=== PATIENT | male | born 1975 | race Caucasian/White ===

== ENCOUNTER 2017-12-09 09:44 | Observation (INO) | payer SELFPAY ==
--- NOTE | 2017-12-09 09:59 | ER Document Report ---
ED Medical Screen (RME) - General Chief Complaint: Dizziness Stated Complaint: DIZZINESS, HEADACHE Time Seen by Provider: 12/09/17 09:56 Mode of Arrival: Ambulatory Information source: Patient Notes: Patient states that when he awoke this morning at 530 he had a headache and felt dizzy. He states that he felt normal yesterday. He states that he has fell off balance in his legs and felt like "Jell-O". He states he tried to go to work but he continued to feel dizzy and have a headache and that his mouth felt numb when he was trying to chew. Is well TRAVEL OUTSIDE OF THE [place] IN LAST 30 DAYS: No - Related Data Allergies/Adverse Reactions: Sulfa (Sulfonamide Antibiotics) Allergy (Unknown, Verified 12/09/17 09:46) sulfamethoxazole [From ] Allergy (Verified 12/09/17 09:46) trimethoprim [From ] Allergy (Verified 12/09/17 09:46) Past Medical History - Social History Frequency of alcohol use: None Drug Abuse: None Pulmonary Medical History: Reports: Hx Asthma Endocrine Medical History: Denies: Hx Diabetes Mellitus Type 2 Renal/ Medical History: Denies: Hx Peritoneal Dialysis GI Medical History: Denies: Hx Gastritis, Hx Gastroesophageal Reflux Disease Skin Medical History: Reports Hx MRSA Past Surgical History: Reports: Hx Orthopedic Surgery - L4-L5 - Immunizations Hx Diphtheria, Pertussis, Tetanus Vaccination: Yes Physical Exam - Vital signs Vitals: Temp Pulse Resp BP Pulse Ox 98.2 F 71 18 135/74 H 90 L 12/09/17 09:50 12/09/17 09:50 12/09/17 09:50 12/09/17 09:50 12/09/17 09:50 Course - Vital Signs Vital signs: Temp Pulse Resp BP Pulse Ox 98.2 F 71 18 135/74 H 90 L 12/09/17 09:50 12/09/17 09:50 12/09/17 09:50 12/09/17 09:50 12/09/17 09:50
[2017-12-09 10:30] LABS: ABSOLUTE EOSINOPHILS # (AUTO) 0.4 10^3/uL (0.0-0.6); ABSOLUTE LYMPHOCYTES (AUTO) 1.5 10^3/uL (0.5-4.7); ABSOLUTE MONOCYTES (AUTO) 0.4 10^3/uL (0.1-1.4); ABSOLUTE NEUT (AUTO) 5.8 10^3/uL (1.7-8.2); BASOPHILS % (AUTO) 0.5 % (0-2); HEMATOCRIT 43.8 % (37.9-51.0); HEMOGLOBIN 14.3 g/dL (13.5-17.0); LYMPHOCYTES % (AUTO) 18.1 % (13-45); MEAN CORPUSCULAR HEMOGLOBIN 28.1 pg (27.0-33.4); MEAN CORPUSCULAR HGB CONC 32.7 g/dL (32.0-36.0); MEAN CORPUSCULAR VOLUME 86 fl (80-97); MONOCYTES % (AUTO) 4.8 % (3-13); PLATELET COUNT 172 10^3/uL (150-450); SEGMENTED NEUTROPHILS % (AUTO) 71.6 % (42-78); TOTAL CELLS COUNTED % (AUTO) 100 %; WHITE BLOOD COUNT 8.1 10^3/uL (4.0-10.5)
--- NOTE | 2017-12-09 10:34 | ER Document Report ---
ED General - General Chief Complaint: Dizziness Stated Complaint: DIZZINESS, HEADACHE Time Seen by Provider: 12/09/17 09:56 Mode of Arrival: Ambulatory Notes: Patient says that he is having trouble with his balance and feeling dizzy this morning about 5:30 or 5:45 AM. He was fine yesterday and when he went to bed last night. He had his symptoms when he woke up this morning. He says his legs feel like "Jell-O", both of them, the left may be a little worse than the right. He says he feels normal around his mouth. 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 He says that he has had a headache since this morning, but took 2 Aleve around 8 AM and that headache is completely gone now. Patient says he has had headaches like this in the past occasionally, but not associated with these other symptoms. Says he vomited once today. Not nauseated now. No abdominal pain or diarrhea. No chest pains. No shortness of breath or difficulty breathing. Has not had any fever. Not around anyone else has been ill recently. PMH: Patient has chronic back pain from old injuries and 3 back surgeries. He takes Buphenyl 20 mg daily. TRAVEL OUTSIDE OF THE [place] IN LAST 30 DAYS: No - Related Data Allergies/Adverse Reactions: Sulfa (Sulfonamide Antibiotics) Allergy (Unknown, Verified 12/09/17 09:46) sulfamethoxazole [From Septra] Allergy (Verified 12/09/17 09:46) trimethoprim [From Septra] Allergy (Verified 12/09/17 09:46) Past Medical History - General Information source: Patient - Social History Smoking Status: Current Every Day Smoker - Smokes 2 packs of cigarettes daily. Cigarette use (# per day): Yes Frequency of alcohol use: None Drug Abuse: None Family History: Reviewed & Not Pertinent, Other - Kidney disease Patient has suicidal ideation: No Patient has homicidal ideation: No Pulmonary Medical History: Reports: Hx Asthma Skin Medical History: Reports Hx MRSA Past Surgical History: Reports: Hx Orthopedic Surgery - L4-L5 Back surgery 3 times - Immunizations Hx Diphtheria, Pertussis, Tetanus Vaccination: Yes Review of Systems - Review of Systems Notes: REVIEW OF SYSTEMS: CONSTITUTIONAL : Denies fever. EENT: Denies eye, ear, nose or mouth or throat pain or other symptoms. Vision normal. No significant nasal congestion. CARDIOVASCULAR: Denies chest pain. RESPIRATORY: Denies cough, chest congestion, or shortness of breath. GASTROINTESTINAL: Denies abdominal pain or nausea, vomiting, or diarrhea. GENITOURINARY: Denies difficulty or painful urinating, urinary frequency, blood in urine. MUSCULOSKELETAL: Has chronic back pain. Denies neck pain. Denies joint pain or swelling. SKIN: Denies rash or skin lesions. NEUROLOGICAL: See HPI. Denies LOC or altered mental status. Denies sensory loss or motor deficits. ALL OTHER SYSTEMS REVIEWED AND NEGATIVE. Physical Exam - Vital signs Vitals: Temp Pulse Resp BP Pulse Ox 98.2 F 71 18 135/74 H 90 L 12/09/17 09:50 12/09/17 09:50 12/09/17 09:50 12/09/17 09:50 12/09/17 09:50 Interpretation: Normal - Notes Notes: PHYSICAL EXAMINATION: GENERAL: Well-appearing, in no acute distress. Vital signs are all normal. HEAD: Atraumatic, normocephalic. EYES: Pupils equal round and reactive to light, extraocular movements intact. ENT: oropharynx clear without exudates. Moist mucous membranes. NECK: Normal range of motion, supple. No carotid bruits heard. LUNGS: Breath sounds clear and equal bilaterally. HEART: Regular rate and rhythm without murmurs. ABDOMEN: Soft, nontender. No guarding or rebound. No masses. BACK: No tenderness throughout entire back. EXTREMITIES: Normal range of motion without pain. NEUROLOGICAL: Normal speech, normal gait. Normal sensory, motor, and reflex exams. Awake, alert, and oriented x3. PSYCH: Normal mood, normal affect. SKIN: Warm, dry, no rashes. Course - Re-evaluation Re-evalutation: 12/09/17 15:21 Discussed the case with , neurology at [facility], who recommends treatment with aspirin daily and further workup of the patient, but no need to transfer him to their facility at this time. Recommended CTA of the head and neck, echocardiogram, hypercoagulable studies, and lipid studies. Discussed with hospitalist who will be admitting the patient for observation. - Vital Signs Vital signs: Temp Pulse Resp BP Pulse Ox 98.2 F 63 10 L 132/75 H 92 12/09/17 09:50 12/09/17 12:00 12/09/17 12:01 12/09/17 12:01 12/09/17 12:01 - Laboratory Result Diagrams: 12/09/17 10:09 12/09/17 10:09 Laboratory results interpreted by me: 12/09/17 11:15 Carboxyhemoglobin 5.1 H - Diagnostic Test Radiology reviewed: Image reviewed, Reports reviewed - CT scan of the brain showed some abnormality and MRI was advised. MRI shows an acute nonhemorrhagic infarct of the right thalamus. - EKG Interpretation by Mo EKG shows normal: Sinus rhythm Rate: Normal Rhythm: NSR Additional EKG results interpreted by me: 12/09/17 15:19 EKG is normal. Discharge - Discharge Clinical Impression: Stroke Condition: Stable Disposition: ADMITTED OBSERVATION Admitting Provider: Hospitalist Unit Admitted: Telemetry
[2017-12-09 10:57] LABS: ALANINE AMINOTRANSFERASE 43 U/L (21-72); ALBUMIN 4.2 g/dL (3.5-5.0); ALKALINE PHOSPHATASE 71 U/L (38-126); ANION GAP 9 (5-19); ASPARTATE AMINO TRANSFERASE 30 U/L (17-59); BILIRUBIN,DIRECT 0.4 mg/dL (0.0-0.4); BILIRUBIN,TOTAL 0.5 mg/dL (0.2-1.3); BLOOD UREA NITROGEN 15 mg/dL (7-20); CARBON DIOXIDE 30 mmol/L (22-30); CHLORIDE 105 mmol/L (98-107); GLUCOSE 93 mg/dL (75-110); POTASSIUM 4.5 mmol/L (3.6-5.0); SODIUM 143.6 mmol/L (137-145); TOTAL PROTEIN 7.3 g/dL (6.3-8.2)
--- NOTE | 2017-12-09 11:25 | RADIOLOGY REPORT (SQ) ---
EXAM DESCRIPTION: CT HEAD WITHOUT COMPLETED DATE/TIME: 12/09/2017 10:59 am REASON FOR STUDY: dizzy/gonsalez COMPARISON: None. TECHNIQUE: Axial images acquired through the brain without intravenous contrast. Images reviewed wi th bone, brain and subdural windows. Images stored on PACS. All CT scanners at this facility use dose modulation, iterative reconstruction, and/or weight based d osing when appropriate to reduce radiation dose to as low as reasonably achievable (ALARA). [facility]: Dose Right [facility]: CareDose [facility]: Dose Right [facility]: Teradose 4D [facility]: Smart Technologies RADIATION DOSE: CT Rad equipment meets quality standard of care and radiation dose reduction techniq ues were employed. CTDIvol: 64.6 mGy. DLP: 1163 mGy-cm. mGy. LIMITATIONS: None. FINDINGS: VENTRICLES: There is some deformity of the temporal horn of the right lateral ventricle. CEREBRUM: There is relative low density along the path of the temporal horn of the right lateral vent ricle. This may be related to adjacent encephalomalacia. Other etiologies cannot be excluded and MR I may be of value for further evaluation. No hemorrhage. No midline shift. No evidence for acute i nfarction. Normal alamo/white matter differentiation. No areas of low density in the white matter. CEREBELLUM: No masses. No hemorrhage. No alteration of density. No evidence for acute infarction. EXTRAAXIAL SPACES: No fluid collections. No masses. ORBITS AND GLOBE: No intra- or extraconal masses. Normal contour of globe without masses. CALVARIUM: No fracture. PARANASAL SINUSES: A large mucosal polyp retention cyst is identified in the left maxillary antra. M ucosal thickening is seen in several of the ethmoidal air cells P SOFT TISSUES: No mass or hematoma. OTHER: No other significant finding. IMPRESSION: There is some deformity of the temporal horn of the right lateral ventricle with adjacen t relative low density as noted above. This may be related to adjacent encephalomalacia. Other etio logies cannot be excluded and MRI may be of value for further evaluation. Other findings as noted ab ove EVIDENCE OF ACUTE STROKE: NO. COMMENT: Quality ID # [id number]: Final reports with documentation of one or more dose reduction techniques (e.g., Automated exposure control, adjustment of the mA and/or kV according to patient size, use of iterative reconstruction technique) TECHNICAL DOCUMENTATION: JOB ID: [id number] [employer]- All Rights Reserved Reading location - IP/workstation name: [email or web address]
[2017-12-09 11:31] LABS: APPEARANCE,URINE CLEAR; BILIRUBIN,URINE NEGATIVE (NEGATIVE); COLOR,URINE STRAW; GLUCOSE, URINE NEGATIVE (NEGATIVE); KETONES,URINE NEGATIVE (NEGATIVE); LEUKOCYTE ESTERASE,URINE NEGATIVE (NEGATIVE); NITRITE,URINE NEGATIVE (NEGATIVE); PROTEIN,URINE NEGATIVE (NEGATIVE); URINE SPECIFIC GRAVITY 1.005; UROBILINOGEN,URINE NEGATIVE mg/dL (<2.0)
[2017-12-09 11:44] LABS: URINE AMPHETAMINES SCREEN NEGATIVE; URINE BARBITURATES SCREEN NEGATIVE; URINE BENZODIAZEPINES SCREEN NEGATIVE; URINE COCAINE SCREEN NEGATIVE; URINE MARIJUANA (THC) SCREEN NEGATIVE; URINE METHADONE SCREEN NEGATIVE; URINE PHENCYCLIDINE SCREEN NEGATIVE
--- NOTE | 2017-12-09 13:47 | RADIOLOGY REPORT (SQ) ---
EXAM DESCRIPTION: MRI HEAD COMBO COMPLETED DATE/TIME: 12/09/2017 1:30 pm REASON FOR STUDY: Abnormal findings on CT of head, dizzy, balance pr COMPARISON: None. TECHNIQUE: Multiplanar imaging includes noncontrasted T1, T2, FLAIR, diffusion with ADC map and post gadolinium contrast T1 sequences. Images stored on PACS. CONTRAST TYPE AND DOSE: 20 mL Multihance. RENAL FUNCTION: GFR > 60. LIMITATIONS: None. FINDINGS: ANATOMY: No anomalies. Normal vascular flow voids. Pituitary fossa normal. CSF SPACES: Normal in size and contour. No hemorrhage. CEREBRUM: Oval focus of abnormal signal in the right thalamus which is bright on diffusion and dark o n ADC map. No evidence of hemorrhage, mass, or extraaxial fluid collection. No abnormal enhancement p ost contrast. POSTERIOR FOSSA: No signal alteration. No hemorrhage. No edema, masses, or mass effect. Internal nikki tory canals, cerebellopontine angles, mastoids normal. No enhancing lesions. No abnormal enhancement post contrast. DIFFUSION IMAGING: See above. ORBITS: No masses. Globes normal. PARANASAL SINUSES: Fluid left maxillary sinus. OTHER: No other significant finding. IMPRESSION: Acute, nonhemorrhagic infarct right thalamus. EVIDENCE OF ACUTE STROKE: YES. RIGHT [employer] TECHNICAL DOCUMENTATION: JOB ID: [id number] [employer]- All Rights Reserved Reading location - IP/workstation name: [email or web address]
--- NOTE | 2017-12-09 14:31 | RADIOLOGY REPORT (SQ) ---
EXAM DESCRIPTION: LUMBAR PUNCTURE; FLUORO/NEEDLE PLACEMENT/SPINE COMPLETED DATE/TIME: 12/09/2017 2:21 pm REASON FOR STUDY: Headache and weakness. Hx 3 back surgeries; MARTEL, WEAKNESS COMPARISON: CT brain 12/09/2017, MRI brain 12/09/2017 Lumbar spine films 03/01/2013 FLUOROSCOPY TIME: 23 seconds 2 digital radiographic images saved to PACS. TECHNIQUE: Fluoroscopic guided lumbar puncture. LIMITATIONS: None. PROCEDURE: After written consent and assessment were obtained, the patient was brought into the fluo roscopy room and placed prone on the table. The patient's lower back was prepped in a sterile fashio n and an entry site was selected under live fluoroscopic guidance. The entry site was anesthetized wi th 4 mL of 1% lidocaine. A 22 gauge spinal needle was advanced through the skin and into the thecal s ac at the left paracentral L2-3 level. After approximately 8 ml was drained, the needle was removed and a sterile bandage was placed of the site. Specimens were sent to the lab for testing. A fluoros copic spot image was saved to PACS confirming level access. FINDINGS: Clear CSF, opening pressure 15 cm of water IMPRESSION: Lumbar puncture under fluoroscopy. No immediate complication. COMMENT: Patient medication list reviewed: Yes- Quality ID# [id number]:Eligible professional attests to doc umenting in the medical record they obtained, updated, or reviewed the patient's current medications. . Quality ID 145: Final reports for procedures using fluoroscopy that document radiation exposure zara kiki, or exposure time and number of fluorographic images (if radiation exposure indices are not avail able) TECHNICAL DOCUMENTATION: JOB ID: [id number] [employer]- All Rights Reserved Reading location - IP/workstation name: [email or web address]
--- NOTE | 2017-12-09 14:31 | RADIOLOGY REPORT (SQ) ---
EXAM DESCRIPTION: LUMBAR PUNCTURE; FLUORO/NEEDLE PLACEMENT/SPINE COMPLETED DATE/TIME: 12/09/2017 2:21 pm REASON FOR STUDY: Headache and weakness. Hx 3 back surgeries; MARTEL, WEAKNESS COMPARISON: CT brain 12/09/2017, MRI brain 12/09/2017 Lumbar spine films 03/01/2013 FLUOROSCOPY TIME: 23 seconds 2 digital radiographic images saved to PACS. TECHNIQUE: Fluoroscopic guided lumbar puncture. LIMITATIONS: None. PROCEDURE: After written consent and assessment were obtained, the patient was brought into the fluo roscopy room and placed prone on the table. The patient's lower back was prepped in a sterile fashio n and an entry site was selected under live fluoroscopic guidance. The entry site was anesthetized wi th 4 mL of 1% lidocaine. A 22 gauge spinal needle was advanced through the skin and into the thecal s ac at the left paracentral L2-3 level. After approximately 8 ml was drained, the needle was removed and a sterile bandage was placed of the site. Specimens were sent to the lab for testing. A fluoros copic spot image was saved to PACS confirming level access. FINDINGS: Clear CSF, opening pressure 15 cm of water IMPRESSION: Lumbar puncture under fluoroscopy. No immediate complication. COMMENT: Patient medication list reviewed: Yes- Quality ID# [id number]:Eligible professional attests to doc umenting in the medical record they obtained, updated, or reviewed the patient's current medications. . Quality ID 145: Final reports for procedures using fluoroscopy that document radiation exposure zara kiki, or exposure time and number of fluorographic images (if radiation exposure indices are not avail able) TECHNICAL DOCUMENTATION: JOB ID: [id number] [employer]- All Rights Reserved Reading location - IP/workstation name: [email or web address]-RR
[2017-12-09 14:57] LABS: APPEARANCE ALL TUBES CLEAR; COLOR ALL TUBES COLORLESS; CSF TOTAL VOLUME 7.8 CC; CSF TUBE NUMBER 1; VOLUME TUBE 4 1.8 CC
[2017-12-09 14:58] LABS: APPEARANCE ALL TUBES CLEAR; COLOR ALL TUBES COLORLESS; CSF TUBE NUMBER 4; RED BLOOD CELL,CSF 316 /uL (0-10); WHITE BLOOD CELL,CSF 3 /uL (0-5)
[2017-12-09 14:59] LABS: CSF TOTAL VOLUME 7.8 CC; RED BLOOD CELL,CSF 17 /uL (0-10); VOLUME TUBE 4 1.8 CC; WHITE BLOOD CELL,CSF 2 /uL (0-5)
[2017-12-09 15:00] LABS: GLUCOSE,CSF 69 mg/dL (40-70); PROTEIN,CSF 43 mg/dL (12-60)
[2017-12-09] MEDS ORDERED: LABETALOL HCL INJ 20 MG/4 ML DISP.SYRIN IV PRN (15:55)
[2017-12-09] MEDS ORDERED: OXYCODONE HCL IR 5 MG TABLET PO PRN (16:08)
--- NOTE | 2017-12-09 16:31 | PDOC H&P ---
History of Present Illness Admission Date/PCP: 12/09/2017 3:30pm No PCP Patient complains of: acute lower extremity weakness History of Present Illness: YOSEPH MANLEY is a 42 year old male Past Medical History Pulmonary Medical History: Reports: Asthma Endocrine Medical History: Denies: Diabetes Mellitus Type 2 GI Medical History: Denies: Gastroesophageal Reflux Disease Musculoskeletal History Note: Chronic lower back pain Past Surgical History Past Surgical History: Reports: Orthopedic Surgery - L4-L5 Back surgery 3 times Social History Information Source: Patient Smoking Status: Current Every Day Smoker - Smokes 2 packs of cigarettes daily. 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 Family History Family History: Reviewed & Not Pertinent, Other - Kidney disease Parental Family History Reviewed: Yes - Father: HTN, Mother: Anorexia, Grandmother: hemorrhagic CVA Children Family History Reviewed: NA Sibling(s) Family History Reviewed.: NA Medication/Allergy Home Medications: Albuterol Sulfate [Ventolin HFA MDI 18 GM] 2 puff IH Q6HP PRN #7 mdi 03/08/14 Doxycycline Hyclate [Vibramycin 100 mg Tablet] 100 mg PO BID #20 tablet Oxycodone HCl/Acetaminophen [Percocet 5-325 mg Tablet] 1 - 2 tab PO ASDIR PRN # 20 tablet 03/08/14 Prednisone [Deltasone 20 mg Tablet] 20 mg PO QAM #25 tablet 03/08/14 Ibuprofen [Motrin 600 mg Tablet] 600 mg PO Q8HP PRN #90 tablet 12/29/14 Oxycodone HCl 5 mg PO Q6 #30 tablet 12/29/14 Allergies/Adverse Reactions: Sulfa (Sulfonamide Antibiotics) Allergy (Unknown, Verified 12/09/17 09:46) sulfamethoxazole [From Septra] Allergy (Verified 12/09/17 09:46) trimethoprim [From Septra] Allergy (Verified 12/09/17 09:46) Review of Systems All systems: reviewed and no additional remarkable complaints except as stated Physical Exam Vital Signs: Temp Pulse Resp BP Pulse Ox 98.2 F 59 L 15 146/73 H 93 12/09/17 09:50 12/09/17 15:00 12/09/17 15:12 12/09/17 15:12 12/09/17 15:12 Intake & Output 12/08/17 12/09/17 12/10/17 06:59 06:59 06:59 Weight 135.3 kg General appearance: PRESENT: no acute distress, cooperative, obese Head exam: PRESENT: atraumatic, normocephalic Mouth exam: PRESENT: moist Neck exam: PRESENT: full ROM. ABSENT: carotid bruit, JVD, lymphadenopathy, tenderness, thyromegaly Respiratory exam: PRESENT: unlabored. ABSENT: tachypnea, wheezes Cardiovascular exam: PRESENT: RRR, +S1, +S2. ABSENT: systolic murmur, tachycardia GI/Abdominal exam: PRESENT: soft. ABSENT: tenderness Musculoskeletal exam: PRESENT: full ROM Neurological exam: PRESENT: alert, awake, oriented to person, oriented to place , oriented to time, oriented to situation, CN II-XII grossly intact, normal gait. ABSENT: aphasic Psychiatric exam: PRESENT: appropriate affect, normal mood Skin exam: PRESENT: dry Results Laboratory Results: 12/09/17 10:09 12/09/17 10:09 12/09/17 12/09/17 12/09/17 10:09 10:09 10:09 WBC 8.1 RBC 5.10 Hgb 14.3 Hct 43.8 MCV 86 MCH 28.1 MCHC 32.7 RDW 14.0 Plt Count 172 Seg Neutrophils % 71.6 Lymphocytes % 18.1 Monocytes % 4.8 Eosinophils % 5.0 Basophils % 0.5 Absolute Neutrophils 5.8 Absolute Lymphocytes 1.5 Absolute Monocytes 0.4 Absolute Eosinophils 0.4 Absolute Basophils 0.0 Carboxyhemoglobin Sodium 143.6 Potassium 4.5 Chloride 105 Carbon Dioxide 30 Anion Gap 9 BUN 15 Creatinine 0.81 Est GFR ( Amer) > 60 Est GFR (Non-Af Amer) > 60 Glucose 93 Calcium 10.0 Total Bilirubin 0.5 AST 30 ALT 43 Alkaline Phosphatase 71 Total Protein 7.3 Albumin 4.2 Urine Color STRAW Urine Appearance CLEAR Urine pH 7.0 Ur Specific [place] 1.005 Urine Protein NEGATIVE Urine Glucose (UA) NEGATIVE Urine Ketones NEGATIVE Urine Blood NEGATIVE Urine Nitrite NEGATIVE Ur Leukocyte Esterase NEGATIVE Urine WBC (Auto) 0 Fluid Tube Number CSF Volume CSF Appearance CSF Color CSF WBC CSF RBC CSF Glucose CSF Total Protein 12/09/17 12/09/17 12/09/17 11:15 14:03 14:03 WBC RBC Hgb Hct MCV MCH MCHC RDW Plt Count Seg Neutrophils % Lymphocytes % Monocytes % Eosinophils % Basophils % Absolute Neutrophils Absolute Lymphocytes Absolute Monocytes Absolute Eosinophils Absolute Basophils Carboxyhemoglobin 5.1 H Sodium Potassium Chloride Carbon Dioxide Anion Gap BUN Creatinine Est GFR ( Amer) Est GFR (Non-Af Amer) Glucose Calcium Total Bilirubin AST ALT Alkaline Phosphatase Total Protein Albumin Urine Color Urine Appearance Urine pH Ur Specific [place] Urine Protein Urine Glucose (UA) Urine Ketones Urine Blood Urine Nitrite Ur Leukocyte Esterase Urine WBC (Auto) Fluid Tube Number 1 4 CSF Volume 7.8 7.8 CSF Appearance CLEAR CLEAR CSF Color COLORLESS COLORLESS CSF WBC 3 2 CSF RBC 316 17 CSF Glucose CSF Total Protein 12/09/17 14:03 WBC RBC Hgb Hct MCV MCH MCHC RDW Plt Count Seg Neutrophils % Lymphocytes % Monocytes % Eosinophils % Basophils % Absolute Neutrophils Absolute Lymphocytes Absolute Monocytes Absolute Eosinophils Absolute Basophils Carboxyhemoglobin Sodium Potassium Chloride Carbon Dioxide Anion Gap BUN Creatinine Est GFR ( Amer) Est GFR (Non-Af Amer) Glucose Calcium Total Bilirubin AST ALT Alkaline Phosphatase Total Protein Albumin Urine Color Urine Appearance Urine pH Ur Specific [place] Urine Protein Urine Glucose (UA) Urine Ketones Urine Blood Urine Nitrite Ur Leukocyte Esterase Urine WBC (Auto) Fluid Tube Number CSF Volume CSF Appearance CSF Color CSF WBC CSF RBC CSF Glucose 69 CSF Total Protein 43 Impressions: Guidance Fluoroscopy 12/09/17 00:00 IMPRESSION: Lumbar puncture under fluoroscopy. No immediate complication. Head CT 12/09/17 09:56 IMPRESSION: There is some deformity of the temporal horn of the right lateral ventricle with adjacent relative low density as noted above. This may be related to adjacent encephalomalacia. Other etiologies cannot be excluded and MRI may be of value for further evaluation. Other findings as noted above EVIDENCE OF ACUTE STROKE: NO. Lumbar Puncture 12/09/17 12:07 IMPRESSION: Lumbar puncture under fluoroscopy. No immediate complication. Head MRI 12/09/17 12:15 IMPRESSION: Acute, nonhemorrhagic infarct right thalamus. EVIDENCE OF ACUTE STROKE: YES. RIGHT [employer] Assessment & Plan - Diagnosis (1) Arterial ischemic stroke, vertebrobasilar, thalamic, acute Qualifiers: Laterality: right Qualified Code(s): I63.211 - Cerebral infarction due to unspecified occlusion or stenosis of right vertebral artery; I63.22 - Cerebral infarction due to unspecified occlusion or stenosis of basilar artery; I63.22 - Cerebral infarction due to unspecified occlusion or stenosis of basilar artery; I63.22 - Cerebral infarction due to unspecified occlusion or stenosis of basilar artery; I63.22 - Cerebral infarction due to unspecified occlusion or stenosis of basilar artery Is this a current diagnosis for this admission?: Yes Plan: Presented with same day lower extremity (L>R) and difficulty with ambulation, no other focal neurological weakness. Work up with symptoms so unclear what time symptoms occurred --> outside the window for intervention with TPA Risk factors: current heavy smoker, heavy smoker, HTN? ED Work up: - MRI brain showed acute, non hemorrhagic infract right thalamus - LP was obtained for unclear reasons, not consistent with infection - Case discussed with Dr. Figueredo ([facility]) who recommended medical management Inpatient work up - Will check lipid profile, TSH, HgA1c - Ordered echocardiogram and carotid dopplers - PT/OT/speech evaluation - Smoking cessation counseling, nicotene patch ordered - Will monitor BP, if remain elevated will start on anti-hypertensives prior to discharge (2) Morbid obesity with BMI of 40.0-44.9, adult Is this a current diagnosis for this admission?: Yes Plan: Encouraged weigh loss and increase exercise (3) Hypertension Qualifiers: Hypertension type: unspecified secondary hypertension Qualified Code(s): I15.9 - Secondary hypertension, unspecified; I15 - Secondary hypertension Is this a current diagnosis for this admission?: No Plan: Patient has not history of HTN however has elevated BPs at admission and SPB have been 130-140s - Will continue cardiac rehab nurse - Permissive hypertension for at least 24 hours, ordered Labetolol PRN SBP>180s (4) Smoking Is this a current diagnosis for this admission?: Yes Plan: Motivated to stop smoking. Smoking cessation counseling provided - Nicotene patch (21mg) ordered daily - Time Time Spent: 50 to 70 Minutes Critical Time spent with patient: Less than 15 minutes Smoking Cessation Education: 3 to 10 minutes Medications reviewed and adjusted accordingly: Yes Anticipated discharge: Home Within: within 24 hours
[2017-12-09] MEDS ORDERED: NICOTINE 21 MG/24 HR PATCH.TD24 TD ONE (17:00)
[2017-12-09] MEDS ORDERED: INFLUENZA ADLT QUAD (36MOS+) 2017-18 VAC 0.5 ML SYR IM PRN (21:16)
[2017-12-09] MEDS ORDERED: ATORVASTATIN CALCIUM 40 MG TABLET PO SCH (22:00)
--- NOTE | 2017-12-09 23:02 | EKG REPORT ---
SEVERITY:- NORMAL ECG - SINUS RHYTHM : Confirmed by: Sami Wilson 09-Dec-2017 23:01:55
[2017-12-10 05:56] LABS: ANION GAP 9 (5-19); BLOOD UREA NITROGEN 20 mg/dL (7-20); CALCIUM 9.6 mg/dL (8.4-10.2); CARBON DIOXIDE 30 mmol/L (22-30); CHLORIDE 102 mmol/L (98-107); CHOLESTEROL 144.02 mg/dL (0-200); GLUCOSE 108 mg/dL (75-110); POTASSIUM 4.2 mmol/L (3.6-5.0); SODIUM 140.9 mmol/L (137-145); TRIGLYCERIDES 125 mg/dL (<150)
[2017-12-10 06:06] LABS: DIRECT LDL 94 mg/dL (<100)
[2017-12-10] MEDS ORDERED: NICOTINE 21 MG/24 HR PATCH.TD24 TD SCH (10:00)
[2017-12-10] MEDS ORDERED: ASPIRIN 81 MG TABLET, ENT COATED PO SCH (10:00)
--- NOTE | 2017-12-10 11:40 | RADIOLOGY REPORT (SQ) ---
EXAM DESCRIPTION: CAROTID DOPPLER COMPLETED DATE/TIME: 12/10/2017 11:15 am REASON FOR STUDY: New Right sided Thalamic infarct COMPARISON: MRI brain 12/09/2017 CT brain 12/09/2017 TECHNIQUE: Grayscale ultrasound, Doppler velocity and spectra, and color Doppler images acquired of the extra-cranial carotid and vertebral arteries. Images stored on PACS. LIMITATIONS: None. FINDINGS: RIGHT CAROTID CCA Velocities: Within normal limits. ICA Velocities Peak systolic 0.99 m/s. End diastolic 0.39 m/s. Proximal ICA/CCA peak systolic ratio normal. Spectra normal. No significant plaque. LEFT CAROTID CCA Velocities: Within normal limits. ICA Velocities Peak systolic 1.3 m/s. End diastolic 0.3 m/s. Proximal ICA/CCA peak systolic ratio normal. Spectra normal. No significant plaque. VERTEBRAL ARTERIES: Antegrade flow. Normal waveforms. SUBCLAVIAN ARTERIES: Not evaluated OTHER: No other significant finding. IMPRESSION: NO HEMODYNAMICALLY SIGNIFICANT STENOSIS. COMMENT: Quality ID #[id number]: Velocity criteria are extrapolated from the diameter data as defined by t he Society of Radiologists in Ultrasound Consensus Conference. Radiology 2003: 229; 340-346. TECHNICAL DOCUMENTATION: JOB ID: [id number] [employer]- All Rights Reserved Reading location - IP/workstation name: [email or web address]
[2017-12-10 12:54] VITALS: BP 129/74
--- NOTE | 2017-12-10 12:57 | XCELERA REPORT ---
[address] [address] Transthoracic Echocardiogram Report Name: YOSEPH MANLEY Age: 42 yrs Gender: Male : 1975 Patient Status: Inpatient Patient Location: [address] [place] [address] Study Date: 12/10/2017 08:40 AM Height: 72 in Weight: 298 lb BSA: 2.5 m2 Procedure: A complete two-dimensional transthoracic echocardiogram was performed (2D, M-mode, spectral and color flow Doppler). The study was technically adequate with some images being suboptimal in quality. Reason For Study: New Right sided Thalamic infarct Ordering Physician: MIKE MIJARES Performed By: Bianka Souza Interpretation Summary The left ventricular ejection fraction is normal. There is mild concentric left ventricular hypertrophy. The left ventricle is grossly normal size. Doppler measurements suggest impaired left ventricular relaxation, which is associated with grade I/IV or mild diastolic dysfunction Wall motion cannot be accurately commented on, but no definite regional wall motion abnormalities noted. The right ventricular systolic function is normal. The right atrium is normal in size The left atrium is mildly dilated. There is a trace amount of mitral regurgitation There is no mitral valve stenosis. No aortic regurgitation is present. There is no aortic valve stenosis There is a trace to mild amount of tricuspid regurgitation There is mild pulmonary hypertension by echo Right ventricular systolic pressure is estimated to be elevated at 30- 40mmHg. The aortic root is not well visualized but is probably normal size. The inferior vena cava appeared normal and decreased > 50% with respiration (RAP 5-10 mmHg) There is no pericardial effusion. MMode/2D Measurements & Calculations RVDd: 3.9 cm LVIDd: 4.4 cm FS: 35.9 % Ao root diam: 3.2 cm IVSd: 1.1 cm LVIDs: 2.8 cm EDV(Teich): 86.7 ml LVPWd: 1.2 cm ESV(Teich): 29.8 ml Ao root area: 8.1 cm2 EF(Teich): 65.7 % LA dimension: 3.9 cm Doppler Measurements & Calculations MV E max ne: MV P1/2t max ne: Ao V2 max: LV V1 max P.8 cm/sec 94.3 cm/sec 131.0 cm/sec 7.2 mmHg MV A max ne: MV P1/2t: 61.4 msec Ao max PG: LV V1 max: 71.1 cm/sec 6.9 mmHg 134.3 cm/sec MV E/A: 1.3 MVA(P1/2t): 3.6 cm2 MV dec slope: 449.5 cm/sec2 MV dec time: 0.21 sec PA V2 max: TR max ne: 95.8 cm/sec 283.7 cm/sec PA max PG: TR max P.2 mmHg 3.7 mmHg Left Ventricle The left ventricle is grossly normal size. There is mild concentric left ventricular hypertrophy. The left ventricular ejection fraction is normal. Doppler measurements suggest impaired left ventricular relaxation, which is associated with grade I/IV or mild diastolic dysfunction. Wall motion cannot be accurately commented on, but no definite regional wall motion abnormalities noted. Right Ventricle The right ventricle is grossly normal size. There is normal right ventricular wall thickness. The right ventricular systolic function is normal. Atria The right atrium is normal in size. The left atrium is mildly dilated. Interarterial septum not well visualized and not well dopplered. Cannot comment on ASD/PFO presence. Mitral Valve The mitral valve is grossly normal. There is no mitral valve stenosis. There is a trace amount of mitral regurgitation. Aortic Valve The aortic valve is grossly normal. There is no aortic valve stenosis. No aortic regurgitation is present. Tricuspid Valve The tricuspid valve is not well visualized, but is grossly normal. There is no tricuspid stenosis. There is a trace to mild amount of tricuspid regurgitation. There is mild pulmonary hypertension by echo. Right ventricular systolic pressure is estimated to be elevated at 30-40mmHg. Pulmonic Valve The pulmonic valve is not well visualized. Great Vessels The aortic root is not well visualized but is probably normal size. The inferior vena cava appeared normal and decreased > 50% with respiration (RAP 5-10 mmHg). Effusions There is no pericardial effusion. Incidental Findings No definite cardiac source of CVA/TIA noted on this particular trans- thoracic study. Consider GLORY if clinically indicated. May consider mobile cardiac telemetry monitoring (MCT) for ruling out transient AFIB. : MIKE MIJARES > Sami Wilson
--- NOTE | 2017-12-10 13:54 | PDOC DISCHARGE SUMMARY ---
General - Admit/Disc Date/PCP Admission Date/Primary Care Provider: 12/09/17 16:43 Discharge Date: 12/10/17 - Discharge Diagnosis (1) Arterial ischemic stroke, vertebrobasilar, thalamic, acute Is this a current diagnosis for this admission?: Yes Summary: Presented with same day lower extremity (L>R) and difficulty with ambulation, no other focal neurological weakness. Work up with symptoms so unclear what time symptoms occurred --> outside the window for intervention with TPA. Risk factors: current heavy smoker, obesity, and questionable HTN. ED Work up: - MRI brain showed acute, non hemorrhagic infract right thalamus - LP was obtained for unclear reasons, not consistent with infection - Case discussed with Dr. Figueredo ([facility]) who recommended medical management Inpatient work up include - Lipid profile, TSH, HgA1c: all WNL - Echocardiogram: Preserved EF, Grade I DD, mild right sided pressures - Carotid dopplers: No evidence of stenosis - PT/OT: no concerns - Smoking cessation counseling, nicotene patch script given - BP adequate while inpatient. Was not start on anti-hypertensives at discharge Outpatient plan - Script given for ASA 81mg daily and Atorvastatin 40mg qhs (2) Morbid obesity with BMI of 40.0-44.9, adult Is this a current diagnosis for this admission?: Yes Summary: Encouraged weigh loss and increase exercise, patient understands (3) Hypertension Is this a current diagnosis for this admission?: No Summary: Patient has not history of HTN however has elevated BPs at admission in 130-140s , however there was improvement during remainder of hospital course - Will not discharge on BP meds - Should evaluate BP's at home and can be managed as outpatient (4) Smoking Is this a current diagnosis for this admission?: Yes Summary: Motivated to stop smoking. Smoking cessation counseling provided - Nicotene patch (21mg) script given (5) (HFpEF) heart failure with preserved ejection fraction Is this a current diagnosis for this admission?: Yes Summary: Newly diagnosed, G1DD likely due to elevated blood pressures - Right sided pressures mildly elevated: likely due to obesity and ANURADHA? - Additional Information Discharge Diet: As Tolerated, Regular Discharge Activity: Activity As Tolerated Prescriptions: Aspirin [Ecotrin 81 mg EC Tablet] 81 mg PO DAILY #30 tabec Atorvastatin Calcium [Lipitor 40 mg Tablet] 40 mg PO QHS #30 tab Nicotine [Nicoderm 21 mg/24 Hr Transderm Patch] 1 each TD DAILY #30 patch.td24 Home Medications: Buprenorphine HCl [Subutex 2 mg Sl Tablet] 2 mg SL QAM 12/09/17 Aspirin [Ecotrin 81 mg EC Tablet] 81 mg PO DAILY #30 tabec 12/10/17 Atorvastatin Calcium [Lipitor 40 mg Tablet] 40 mg PO QHS #30 tab 12/10/17 Nicotine [Nicoderm 21 mg/24 Hr Transderm Patch] 1 each TD DAILY #30 patch.td24 12/10/17 History of Present Illness Patient complains of: Leg weakness History of Present Illness: YOSEPH MANLEY is a 42 year old male with nicotene dependence and obesity who presents with acute onset of bilateral leg weakness. Patient woke up from sleep this morning with leg weakness, poor coordination, and difficulty ambulating. He also had a "bad" headache which is not usual for him. Denies any other focal neurological weakness. No recent illnesses, fevers, chills, CP, SOB , abdominal pain, NV. States this has never happened before. 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 Does not have health insurance and last seen by physician in over 2 years. Denies history of HTN, DM , or other medical problems. NO significant family history. In ED, work up was notable for acute thalamic right sided infarct, non ischemic on MRI brain. Admitted to hospitalist service for further evaluation. Physical Exam Vital Signs: Temp Pulse Resp BP Pulse Ox 97.7 F 71 16 140/84 H 95 12/10/17 07:56 12/10/17 07:56 12/10/17 07:56 12/10/17 07:56 12/10/17 07:56 Intake & Output 12/09/17 12/10/17 12/11/17 06:59 06:59 06:59 Intake Total 480 Balance 480 Weight 135 kg General appearance: PRESENT: no acute distress, cooperative, severe distress Mouth exam: PRESENT: moist Respiratory exam: PRESENT: symmetrical, unlabored, wheezes - Occasional expiratory wheeze Cardiovascular exam: PRESENT: RRR, +S1, +S2. ABSENT: systolic murmur, tachycardia GI/Abdominal exam: PRESENT: soft. ABSENT: tenderness Extremities exam: ABSENT: calf tenderness Musculoskeletal exam: PRESENT: ambulatory, full ROM Neurological exam: PRESENT: alert, awake, CN II-XII grossly intact. ABSENT: motor sensory deficit, aphasic Psychiatric exam: PRESENT: appropriate affect Skin exam: PRESENT: dry, warm Results Laboratory Results: 12/10/17 04:29 12/10/17 12/10/17 04:29 04:29 Sodium 140.9 Potassium 4.2 Chloride 102 Carbon Dioxide 30 Anion Gap 9 BUN 20 Creatinine 0.87 Est GFR ( Amer) > 60 Est GFR (Non-Af Amer) > 60 Glucose 108 Calcium 9.6 Triglycerides 125 Cholesterol 144.02 LDL Cholesterol Direct 94 VLDL Cholesterol 25.0 HDL Cholesterol 38 L TSH 0.58 Impressions: Guidance Fluoroscopy 12/09/17 00:00 IMPRESSION: Lumbar puncture under fluoroscopy. No immediate complication. Head CT 12/09/17 09:56 IMPRESSION: There is some deformity of the temporal horn of the right lateral ventricle with adjacent relative low density as noted above. This may be related to adjacent encephalomalacia. Other etiologies cannot be excluded and MRI may be of value for further evaluation. Other findings as noted above EVIDENCE OF ACUTE STROKE: NO. Lumbar Puncture 12/09/17 12:07 IMPRESSION: Lumbar puncture under fluoroscopy. No immediate complication. Head MRI 12/09/17 12:15 IMPRESSION: Acute, nonhemorrhagic infarct right thalamus. EVIDENCE OF ACUTE STROKE: YES. [employer] Qualifiers - * PATEINT BEING DISCHARGED WITH ANY OF THE FOLLOWING DIAGNOSIS?: No
== END 2017-12-10 13:05 | disposition home or self-care (01) ==
LOC: ER 09:44 → EH 16:43 → 3W 18:34
PROVIDERS: ADMIT Emergency Medicine; ATTEND Emergency Medicine
PROC: 009U3ZX Drainage of Spinal Canal, Percutaneous Approach, Diagnostic (ICD-10-PCS; principal; 2017-12-09)
PROC: HZ31ZZZ Individual Counseling for Substance Abuse Treatment, Behavioral (ICD-10-PCS; 2017-12-09)
PROC: 3E0234Z Introduction of Serum, Toxoid and Vaccine into Muscle, Percutaneous Approach (ICD-10-PCS; 2017-12-10)
DX: I63.211 Cerebral infarction due to unspecified occlusion or stenosis of right vertebral artery (principal); I63.22 Cerebral infarction due to unspecified occlusion or stenosis of basilar artery; R53.1 Weakness; R27.8 Other lack of coordination; R26.2 Difficulty in walking, not elsewhere classified; E66.01 Morbid (severe) obesity due to excess calories; R03.0 Elevated blood-pressure reading, without diagnosis of hypertension; I50.30 Unspecified diastolic (congestive) heart failure; F17.210 Nicotine dependence, cigarettes, uncomplicated; J45.909 Unspecified asthma, uncomplicated; R11.10 Vomiting, unspecified; Z68.41 Body mass index [BMI] 40.0-44.9, adult; Z82.49 Family history of ischemic heart disease and other diseases of the circulatory system; Z82.3 Family history of stroke; G89.29 Other chronic pain; M54.9 Dorsalgia, unspecified; T14.90XS Injury, unspecified, sequela; X58.XXXS Exposure to other specified factors, sequela; Z23 Encounter for immunization; Z98.890 Other specified postprocedural states; Z79.52 Long term (current) use of systemic steroids; Z79.899 Other long term (current) drug therapy; Z86.14 Personal history of Methicillin resistant Staphylococcus aureus infection
CPT/HCPCS: 93005; 99285; 36415 ×2; 87070; 82375; 87205; 84443; 85025; 89050; 82945; 84157; 80048; 80053; 81001; 80307; 83036; 80061; 93306; 93880; 70553; 77003; 62270; 70450; 90686; 93010; 97110; 97162; 97165; 99406; G0378 ×3; A9577; J3490 ×2